=== PATIENT | male | born 1935 | race Caucasian/White ===

== ENCOUNTER 2017-06-13 08:20 | Emergency (ER) | payer MEDICARE, BC ==
--- NOTE | 2017-06-13 10:32 | RAD ---
Indication: LEFT heel pain. Symptoms for one week. No known injury. Comparison: No relevant prior exams available [place] [facility] [place]. Technique: AP, lateral, and oblique views LEFT foot. Report: Normal articular alignment. Negative for fracture. Normal variant bipartite sesamoid at the medial head of the flexor hallucis brevis. Mild osteoarthritis at the first metatarsal phalangeal joint. Minimal plantar fascia origin bone spur. Mild soft tissue edema about the heel. Peripheral vascular calcifications. IMPRESSION: 1. Negative for fracture. 2. Small plantar fascia origin heel spur. Nonspecific soft tissue swelling about the heel. Correlate for potential plantar fasciitis.
[2017-06-13 10:52] VITALS: BP 116/63
--- NOTE | 2017-06-13 11:00 | UC ---
Lower Extremity/Ankle HPI - HPI Summary HPI Summary: SEVERAL WEEKS OF WORSENING LEFT HEEL PAIN, RADIATES TO BOTTOM OF FOOT. 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 - History of Current Complaint Chief Complaint: UCLowerExtremity Stated Complaint: RIGHT ANKLE PAIN Time Seen by Provider: 06/13/17 09:56 Hx Obtained From: Patient Onset/Duration: Gradual Onset, Lasting Weeks Severity Initially: Moderate Severity Currently: Moderate Aggravating Factor(s): Standing, Ambulation Able to Bear Weight: Yes - Allergies/Home Medications Allergies/Adverse Reactions: Allergies Allergy/AdvReac Type Severity Reaction Status Date / Time No Known Allergies Allergy Verified 06/13/17 08:48 Home Medications: Home Medications Aspirin [Aspirin 81 MG TAB] 81 mg PO QPM 06/13/17 [History Confirmed 06/13/17] Enlarged Prostate Med 1 tab PO QAM 06/13/17 [History] Glaucoma Med 1 dose BOTH EYES DAILY 06/13/17 [History] Loperamide CAP* [Imodium CAP*] 2 tab PO DAILY 06/13/17 [History Confirmed ] Ranitidine HCl 150 mg PO DAILY 06/13/17 [History Confirmed 06/13/17] Real Tears 1 dose BOTH EYES QID 06/13/17 [History] Simvastatin [Zocor 5 MG-] 40 mg PO QPM 06/13/17 [History Confirmed 06/13/17] PMH/Surg Hx/FS Hx/Imm Hx Previously Healthy: Yes - Surgical History Surgical History: Yes Surgery Procedure, Year, and Place: right elbow and right hip appliances, appy - Family History Known Family History: Negative: Blood Disorder - Social History Occupation: Retired Lives: With Family Alcohol Use: None Substance Use Type: None Smoking Status (MU): Former Smoker - Immunization History Most Recent Tetanus Shot: unknown Review of Systems Constitutional: Negative Skin: Negative Eyes: Negative ENT: Negative Respiratory: Negative Cardiovascular: Negative Gastrointestinal: Negative Genitourinary: Negative Motor: Negative Neurovascular: Negative Musculoskeletal: Arthralgia - LEFT HEEL PAIN, Myalgia Neurological: Negative Psychological: Negative Is Patient Immunocompromised?: No All Other Systems Reviewed And Are Negative: Yes Physical Exam Triage Information Reviewed: Yes Appearance: Well-Appearing, Well-Nourished, Pain Distress - MILD Vital Signs: Initial Vital Signs Temp 98 F 06/13/17 08:38 Pulse 75 06/13/17 08:38 Resp 18 06/13/17 08:38 BP 114/74 06/13/17 08:38 Vital Signs Reviewed: Yes Eye Exam: Normal ENT Exam: Normal ENT: Positive: Normal ENT inspection Dental Exam: Normal Neck exam: Normal Respiratory Exam: Normal Respiratory: Positive: Chest non-tender, Lungs clear, Normal breath sounds, No respiratory distress, No accessory muscle use Cardiovascular Exam: Normal Cardiovascular: Positive: RRR, No Murmur, Pulses Normal, Brisk Capillary Refill Abdominal Exam: Normal Musculoskeletal: Positive: Strength Intact, ROM Intact, Edema @ - LEFT HEEL MILD EDEMA Neurological Exam: Normal Psychological Exam: Normal Skin Exam: Normal Lower Extremity Course/Dx - Differential Dx/Diagnosis Differential Diagnosis/HQI/PQRI: Fracture (Closed), Sprain, Strain, Tendonitis Provider Diagnoses: LEFT FOOT HEEL SPUR, LEFT FOOT PLANTAR FASCIITIS Discharge - Discharge Plan Condition: Stable Disposition: HOME Patient Education Materials: Plantar Fasciitis Exercises (GEN), Plantar Fasciitis (ED) Referrals: Edgardo SR,Maurice Quinteros [Doctor of Podiatric Medicine] - Non Staff,Doctor [Primary Care Provider] -
== END 2017-06-13 10:59 | disposition home or self-care (01) ==
LOC: UCCORT 08:20
DX: M77.32 Calcaneal spur, left foot (principal); M72.2 Plantar fascial fibromatosis; Z79.82 Long term (current) use of aspirin; Z87.891 Personal history of nicotine dependence
CPT/HCPCS: 99203; G0463

== ENCOUNTER 2017-06-19 12:24 | Emergency (ER) | payer MEDICARE, BC ==
[2017-06-19 13:05] VITALS: BP 106/67
--- NOTE | 2017-06-19 13:39 | UC ---
Respiratory Complaint HPI - HPI Summary HPI Summary: Pt is accompanied by . Pt c/o cough, nasal congestion X 6 days. - History of Current Complaint Chief Complaint: UCRespiratory Stated Complaint: CONGESTION,SOB Hx Obtained From: Patient Onset/Duration: Gradual Onset, Lasting Days, Still Present Timing: Constant Severity Initially: Mild Severity Currently: Mild Character: Cough: Nonproductive Aggravating Factors: Recumbent Position Associated Signs And Symptoms: Positive: URI, Nasal Congestion - Risk Factors Pulmonary Embolism Risk Factors: Negative Cardiac Risk Factors: CAD Pseudomonas Risk Factors: Negative Tuberculosis Risk Factors: Negative - Allergies/Home Medications Allergies/Adverse Reactions: Allergies Allergy/AdvReac Type Severity Reaction Status Date / Time No Known Allergies Allergy Verified 06/19/17 13:05 Home Medications: Home Medications Tamsulosin CAP* [Flomax CAP*] 06/19/17 [History] Trospium (NF) [Sanctura (NF)] 20 mg 06/19/17 [History] PMH/Surg Hx/FS Hx/Imm Hx Previously Healthy: Yes - Surgical History Surgical History: Yes Surgery Procedure, Year, and Place: right elbow and right hip appliances, appy - Family History Known Family History: Positive: Cardiac Disease Negative: Blood Disorder - Social History Occupation: Employed Full-time Lives: With Family Alcohol Use: None Substance Use Type: None Smoking Status (MU): Former Smoker Have You Smoked in the Last Year: No - Immunization History Most Recent Influenza Vaccination: current 2016/2017 Most Recent Tetanus Shot: unknown Most Recent Pneumonia Vaccination: 2013 Vaccination Up to Date: Yes Review of Systems Constitutional: Negative Skin: Negative Eyes: Negative ENT: Other - nasal congsetion Respiratory: Cough Cardiovascular: Negative Gastrointestinal: Negative Genitourinary: Negative Motor: Negative Neurovascular: Negative Musculoskeletal: Negative Neurological: Negative Psychological: Negative Is Patient Immunocompromised?: No All Other Systems Reviewed And Are Negative: Yes Physical Exam Triage Information Reviewed: Yes Appearance: Well-Appearing Vital Signs: Initial Vital Signs Temp 97.2 F 06/19/17 13:01 Pulse 64 06/19/17 13:01 Resp 16 06/19/17 13:01 BP 106/67 06/19/17 13:01 Pulse Ox 97 06/19/17 13:01 Vital Signs Reviewed: Yes Eye Exam: Normal ENT Exam: Other ENT: Positive: Nasal congestion Dental Exam: Normal Neck exam: Normal Respiratory Exam: Normal Respiratory: Positive: Normal breath sounds Cardiovascular Exam: Normal Musculoskeletal Exam: Normal Neurological Exam: Normal Psychological Exam: Normal Skin Exam: Normal UC Diagnostic Evaluation - Laboratory O2 Sat by Pulse Oximetry: 97 Respiratory Course/Dx - Differential Dx/Diagnosis Differential Diagnosis/HQI/PQRI: Bronchitis Provider Diagnoses: bronchitis Discharge - Discharge Plan Condition: Stable Disposition: HOME Prescriptions: Benzonatate CAP* [Tessalon 100 MG CAP*] 100 mg PO Q8H PRN #30 cap PRN Reason: Cough DOXYcycline CAP(*) [DOXYcycline 100MG CAP(*)] 100 mg PO Q12H #20 cap Patient Education Materials: Acute Bronchitis (ED) Referrals: Non Staff,Doctor [Primary Care Provider] - If Needed
== END 2017-06-19 14:04 | disposition home or self-care (01) ==
LOC: UCCORT 12:24
DX: J40 Bronchitis, not specified as acute or chronic (principal); Z87.891 Personal history of nicotine dependence
CPT/HCPCS: 99212; G0463

== ENCOUNTER 2018-01-26 14:16 | Emergency (ER) | payer MEDICARE, BC ==
[2018-01-26 14:35] VITALS: BP 115/64
[2018-01-26] MEDS ORDERED: Lidocaine 1%* 5 ML VIAL INJ ONE (14:52)
--- NOTE | 2018-01-26 14:52 | UC ---
Hand/Wrist HPI - HPI Summary HPI Summary: Patient presents compared by his . He states that he accidentally cut his left thumb with a saw about one hour prior to arrival. He denies any foreign body sensation or limited range of motion. They report that his last tetanus is within the past 10 years. He denies any other injuries offers no other complaints. - History Of Current Complaint Chief Complaint: UCLaceration Stated Complaint: LAC ON THUMB/LT HAND Time Seen by Provider: 01/26/18 14:45 Hx Obtained From: Patient, Family/Store Receiver Onset/Duration: Sudden Onset Pain Intensity: 2 Aggravating Factor(s): Movement Alleviating Factor(s): Nothing Associated Signs And Symptoms: Negative: Weakness, Numbness/Tingling - Allergies/Home Medications Allergies/Adverse Reactions: Allergies Allergy/AdvReac Type Severity Reaction Status Date / Time No Known Allergies Allergy Verified 01/26/18 14:35 PMH/Surg Hx/FS Hx/Imm Hx Endocrine History: Dyslipidemia Cardiovascular History: Myocardial Infarction GI/ History: Gastroesophageal Reflux - Surgical History Surgical History: Yes Surgery Procedure, Year, and Place: right elbow and right hip appliances, appy - Family History Known Family History: Positive: Cardiac Disease Negative: Blood Disorder - Social History Occupation: Retired Lives: With Family Alcohol Use: None Substance Use Type: None Smoking Status (MU): Former Smoker Have You Smoked in the Last Year: No - Immunization History Most Recent Influenza Vaccination: current 2016/2017 Most Recent Tetanus Shot: unknown Most Recent Pneumonia Vaccination: 2014 Vaccination Up to Date: Yes Review of Systems Constitutional: Negative - CUT l THUMB Skin: Other - CUT TO SIDE OF l THUMB Eyes: Negative ENT: Negative Respiratory: Negative Cardiovascular: Negative Gastrointestinal: Negative Genitourinary: Negative Motor: Negative Neurovascular: Negative Musculoskeletal: Negative Neurological: Negative Psychological: Negative Is Patient Immunocompromised?: No All Other Systems Reviewed And Are Negative: Yes Physical Exam Triage Information Reviewed: Yes Appearance: Well-Appearing Vital Signs: Initial Vital Signs Temp 98.9 F 01/26/18 14:28 Pulse 68 01/26/18 14:28 Resp 16 01/26/18 14:28 BP 115/64 01/26/18 14:28 Pulse Ox 97 01/26/18 14:28 Vital Signs Reviewed: Yes Eyes: Positive: Conjunctiva Clear ENT: Positive: Normal ENT inspection Neck: Positive: Supple, Nontender, No Lymphadenopathy Respiratory: Positive: Lungs clear, Normal breath sounds Cardiovascular: Positive: RRR, No Murmur Abdomen Description: Positive: Nontender, No Organomegaly, Soft Bowel Sounds: Positive: Present Musculoskeletal: Positive: ROM Intact Neurological: Positive: Alert Psychological: Positive: Normal Response To Family, Age Appropriate Behavior Skin Exam: Normal, Other - 2.0cm laceration ulnar side L thumb with pink deep flap. gross s/v/m is intact with and without resistance. No bleeding. Procedures - Procedure Summary Procedure Summary: Timeout done. Thumb prepped with Betadine. Local with 0.4 mL's of 1% lidocaine. Wound explored for foreign bodies, tendon and ligament damage and none identified. Site irrigated with copious amounts of sterile sodium chloride. Wound reprepped with Betadine, draped and closed with 5-0 nylon and 4 interrupted stitches. Minimal bleeding with procedure. Patient tolerated well. Gross vascular motor intact post procedure. Sterile technique used. Wound length 2 cm. Dressing applied by nursing post procedure. Diagnostics - Radiology No standard instances Radiology Interpretation Completed By: Radiologist - Suggestion of talocrural joint effusion. Subtle grossly nondisplaced avulsion fracture noted at the caudal margin of the lateral malleolus reference the AP view. Congruent ankle mortise. Mild nonfocal soft tissue swelling. Hand/Wrist Course/Dx - Course Course Of Treatment: No concern for fracture, foreign body, tendon or ligament injury. No signs of infection. - Differential Dx/Diagnosis Provider Diagnoses: 2 cm laceration left thumb. Discharge - Sign-Out/Discharge Documenting (check all that apply): Patient Departure - Discharge Plan Condition: Stable Disposition: HOME Patient Education Materials: Care For Your Stitches (DC) Referrals: No Primary Care Phys,NOPCP [Primary Care Provider] - Additional Instructions: RETURN TO THIS [facility] IN 7 DAYS FOR SUTURE REMOVAL OR SOONER FOR ANY CONCERNS. - Billing Disposition and Condition Condition: STABLE Disposition: Home Attestation Statement User Type: Provider - I was available for consult. This patient was seen by the GRISELDA. The patient was not presented to, seen by, or examined by me. -Adelia
--- NOTE | 2018-01-26 15:17 | RAD ---
Indication: Left thumb injury. 3 views of left thumb reviewed. Deformity of the proximal end of the distal phalanx likely due to old injury. No recent injury is noted. No evidence of radiopaque foreign body is noted. IMPRESSION: No definite fracture is identified.
== END 2018-01-26 15:40 | disposition home or self-care (01) ==
LOC: UCCORT 14:16
DX: S61.012A Laceration without foreign body of left thumb without damage to nail, initial encounter (principal); W27.8XXA Contact with other nonpowered hand tool, initial encounter; Y92.9 Unspecified place or not applicable; E78.5 Hyperlipidemia, unspecified; I25.2 Old myocardial infarction; K21.9 Gastro-esophageal reflux disease without esophagitis; Z87.891 Personal history of nicotine dependence
CPT/HCPCS: 99211; G0463

== ENCOUNTER 2018-02-03 07:38 | Emergency (ER) | payer MEDICARE, BC ==
[2018-02-03 07:56] VITALS: BP 131/74
--- NOTE | 2018-02-03 08:11 | UC ---
HPI Wound/Suture Re-check - HPI Summary HPI Summary: here for suture removal left thumb sutures were placed here at the urgent care 8 days ago has no complain wound is healing well - History Of Current Complaint Chief Complaint: UCGeneralIllness Stated Complaint: SUTURE REMOVAL Time Seen by Provider: 02/03/18 07:55 Hx Obtained From: Patient Onset/Duration: Sudden Onset, Lasting Days - 8, Still Present Severity: Moderate Pain Intensity: 0 Procedure Type: suture removal Surgery Date: 01/26/18 - Allergies/Home Medications Allergies/Adverse Reactions: Allergies Allergy/AdvReac Type Severity Reaction Status Date / Time No Known Allergies Allergy Verified 02/03/18 07:53 PMH/Surg Hx/FS Hx/Imm Hx Cardiovascular History: Cardiac Disease, Hypertension - Surgical History Surgical History: Yes Surgery Procedure, Year, and Place: right elbow and right hip appliances, appy - Family History Known Family History: Positive: Cardiac Disease Negative: Blood Disorder - Social History Alcohol Use: None Substance Use Type: None Smoking Status (MU): Former Smoker Have You Smoked in the Last Year: No When Did the Patient Quit Smoking/Using Tobacco: 15 years ago - Immunization History Most Recent Influenza Vaccination: current 2016/2017 Most Recent Tetanus Shot: unknown Most Recent Pneumonia Vaccination: 2014 Vaccination Up to Date: Yes Review of Systems Constitutional: Negative Skin: Negative Eyes: Negative ENT: Negative Is Patient Immunocompromised?: No All Other Systems Reviewed And Are Negative: Yes Physical Exam Triage Information Reviewed: Yes Appearance: Well-Appearing, No Pain Distress, Well-Nourished Vital Signs: Initial Vital Signs Temp 97.7 F 02/03/18 07:54 Pulse 69 02/03/18 07:54 Resp 16 02/03/18 07:54 BP 131/74 02/03/18 07:54 Pulse Ox 99 02/03/18 07:54 Vital Signs Reviewed: Yes Eye Exam: Normal Eyes: Positive: Conjunctiva Clear ENT: Positive: Normal ENT inspection, Hearing grossly normal, Pharynx normal Neck exam: Normal Neck: Positive: Supple Respiratory: Positive: Chest non-tender, Lungs clear, Normal breath sounds Cardiovascular: Positive: RRR, No Murmur, Pulses Normal Bowel Sounds: Positive: Present Skin: Positive: Other - laceration left thumb , + 1.5 cm , wound is clean , dry , healing well 4 sutures intact , wal removed at this visit Course/Dx - Differential Dx - Laceration/Wound Provider Diagnoses: suture removal. laceration left thumb Discharge - Sign-Out/Discharge Documenting (check all that apply): Patient Departure - Discharge Plan Condition: Stable Disposition: HOME Patient Education Materials: Stitches Removal (ED) Referrals: Krishan SOTO,Isacc Francis [Primary Care Provider] - If Needed - Billing Disposition and Condition Condition: STABLE Disposition: Home
== END 2018-02-03 08:08 | disposition home or self-care (01) ==
LOC: UCCORT 07:38
DX: S61.012D Laceration without foreign body of left thumb without damage to nail, subsequent encounter (principal); X58.XXXD Exposure to other specified factors, subsequent encounter; Y92.9 Unspecified place or not applicable

== ENCOUNTER 2018-12-15 14:07 | Emergency (ER) | payer MEDICARE, BC ==
[2018-12-15 14:33] VITALS: BP 98/67
--- NOTE | 2018-12-15 14:50 | UC ---
Lower Extremity/Ankle HPI - HPI Summary HPI Summary: 83-year-old male comes in with a chief complaint of left great toe pain. Patient reports she's had something on the plantar aspect of his great toe for a long time. It's difficult to get out of his by a long time it seems like it' s at least a couple of months. Tender 12 days ago had been getting worse and he saw his dental tech who did something to the toe. Patient not quite sure his wasn't watching so she is unsure of what happened. The patient does not see or hear well. They think dental tech removed a piece of wood. Since that time the pains got worse. Patient does not have diabetes. No fevers no chills no drainage. Pain is worse with application of pressure. It's less when there is no pressure put on. - History of Current Complaint Chief Complaint: UCLowerExtremity Stated Complaint: LT BIG TOE COMPLAINT Time Seen by Provider: 12/15/18 14:41 Pain Intensity: 2 - Allergies/Home Medications Allergies/Adverse Reactions: Allergies Allergy/AdvReac Type Severity Reaction Status Date / Time No Known Allergies Allergy Verified 12/15/18 14:33 Home Medications: Home Medications Mirtazapine TAB* [Remeron TAB*] 7.5 mg PO BEDTIME 12/15/18 [History Confirmed ] Omeprazole 20 mg PO DAILY 12/15/18 [History Confirmed 12/15/18] PMH/Surg Hx/FS Hx/Imm Hx Previously Healthy: Yes - BPH Endocrine History: Dyslipidemia GI/ History: Gastroesophageal Reflux - Surgical History Surgical History: Yes Surgery Procedure, Year, and Place: right elbow and right hip appliances, appy - Family History Known Family History: Positive: Cardiac Disease Negative: Blood Disorder - Social History Alcohol Use: None Substance Use Type: None Smoking Status (MU): Former Smoker Have You Smoked in the Last Year: No When Did the Patient Quit Smoking/Using Tobacco: 15 years ago - Immunization History Most Recent Influenza Vaccination: current 2017/2018 Most Recent Tetanus Shot: unknown Most Recent Pneumonia Vaccination: 2013 Vaccination Up to Date: Yes Review of Systems All Other Systems Reviewed And Are Negative: Yes Constitutional: Positive: Negative Skin: Positive: Other - SEE HPI Eyes: Positive: Other - SEE HPI ENT: Positive: Other - SEE HPI Respiratory: Positive: Negative Cardiovascular: Positive: Negative Gastrointestinal: Positive: Negative Motor: Positive: Negative Neurovascular: Positive: Negative Musculoskeletal: Positive: Negative Neurological: Positive: Negative Psychological: Positive: Negative Is Patient Immunocompromised?: No Physical Exam Triage Information Reviewed: Yes Appearance: Well-Appearing, No Pain Distress, Well-Nourished Vital Signs: Initial Vital Signs Temp 99.1 F 12/15/18 14:21 Pulse 81 12/15/18 14:21 Resp 18 12/15/18 14:21 BP 98/67 12/15/18 14:21 Pulse Ox 97 12/15/18 14:21 Vital Signs Reviewed: Yes Eye Exam: Normal Eyes: Positive: Conjunctiva Clear Neck: Positive: Supple Respiratory: Positive: No respiratory distress Musculoskeletal: Positive: Strength Intact, ROM Intact Neurological: Positive: Alert, Other: - MI'KMAQ,POOR VISION Psychological: Positive: Normal Response To Family, Age Appropriate Behavior Skin: Positive: Other - PLANTAR ASPECT OF LT GREAT TOE MILDLY TENDER WITH SOME SWELLING. NO STREAKING, NL SENSATION AND CAP REFILL. NO DRAINAGE. MINIMAL FLUCTUANCE. Lower Extremity Course/Dx - Course Course Of Treatment: Patient Name: ARMIDA QUILES Medical Record#: [id number] Ordering Physician: Roberto Spicer MD Acct.#: [id number] : 1935 Age: 83 Sex: M Location: [facility] Exam Date: 12/15/181448 ADM Status: REG ER Order Information: TOE LEFT GREAT Accession Number: [id number] CPT: 23160 HISTORY: Pain/swelling plantar lt great toe.Eval FB . COMPARISONS: June 13, 2017 VIEWS: 3, Frontal, lateral, and oblique views of the first digit of the left foot FINDINGS: BONE DENSITY: Normal. BONES: There is no displaced fracture. JOINTS: There is osteoarthritis of the first interphalangeal joint and to a lesser extent at the MTP joint. ALIGNMENT: There is no dislocation. SOFT TISSUES: Unremarkable. OTHER FINDINGS: There is no radiopaque foreign body. IMPRESSION: OSTEOARTHRITIS. NO ACUTE OSSEOUS INJURY. IF SYMPTOMS PERSIST, RECOMMEND REPEAT IMAGING. <Electronically signed by Robert Kowalski MD in OV> 12/15/18 1532 NO OBVIOUS FLUCTUANCE FOR I&D. PLAN IS KEFLEX RX AND F/U PODIATRY. REEVAL SOONER IF WORSE. - Differential Dx/Diagnosis Provider Diagnosis: Foreign body of great toe, left, infected Discharge - Sign-Out/Discharge Documenting (check all that apply): Patient Departure All imaging exams completed and their final reports reviewed: Yes - Discharge Plan Condition: Stable Disposition: HOME Prescriptions: Cephalexin CAP* [Keflex CAP*] 500 mg PO TID #30 cap Patient Education Materials: Soft Tissue Foreign Body (ED), Cellulitis (ED) Referrals: Krishan SOTO,Armida Francis [Primary Care Provider] - Edgardo SR,Maurice Quinteros [Doctor of Podiatric Medicine] - Additional Instructions: FOLLOW UP WITH YOUR CREW SCHEDULER. GET RECHECKED SOONER IF YOUR CONDITION WORSENS; PAIN, SIGNS OF INFECTION OR ANY QUESTIONS OR CONCERNS. - Billing Disposition and Condition Condition: STABLE Disposition: Home
== END 2018-12-15 15:38 | disposition home or self-care (01) ==
LOC: UCCORT 14:07
DX: M79.5 Residual foreign body in soft tissue (principal); L08.89 Other specified local infections of the skin and subcutaneous tissue; M19.072 Primary osteoarthritis, left ankle and foot; N40.0 Benign prostatic hyperplasia without lower urinary tract symptoms; E78.5 Hyperlipidemia, unspecified; K21.9 Gastro-esophageal reflux disease without esophagitis; Z87.891 Personal history of nicotine dependence
CPT/HCPCS: 99212; G0463

== ENCOUNTER 2019-04-11 09:08 | Emergency (ER) | payer MEDICARE, BC ==
[2019-04-11 09:24] VITALS: BP 140/57
--- NOTE | 2019-04-11 09:41 | UC ---
Elbow Pain - HPI Summary HPI Summary: Pt presents with c/o right elbow pain that began post fall from standing height yesterday. Pt was "chasing the neighbors cows" and fell from standing and "rolled down hill". 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 Pt states pain worsens with flexion/extension movement - History of Current Complaint Chief Complaint: UCGeneralIllness Stated Complaint: S/P FALL(04/10/19)-RIGHT ARM INJURY Time Seen by Provider: 04/11/19 09:18 Hx Obtained From: Patient Onset/Duration: Traumatic Severity Initially: Moderate Severity Currently: Moderate Pain Intensity: 8 Location Of Pain: Is Discrete @ - right elbow, generalized Character: Dull, Aching Aggravating Factor(s): Movement Alleviating Factor(s): Rest Associated Signs And Symptoms: Positive: Negative - Allergies/Home Medications Allergies/Adverse Reactions: Allergies Allergy/AdvReac Type Severity Reaction Status Date / Time No Known Allergies Allergy Verified 04/11/19 09:25 Home Medications: Home Medications Nitroglycerin 0.2 MG/HR PATCH* [Nitroglycerin 5 MG PATCH*] 5 mg TRANSDERM DAILY 04/11/19 [History Confirmed 04/11/19] PMH/Surg Hx/FS Hx/Imm Hx Previously Healthy: Yes Endocrine History: Dyslipidemia Cardiovascular History: Cardiac Disease - Surgical History Surgical History: Yes Surgery Procedure, Year, and Place: right elbow and right hip appliances, appy - Family History Known Family History: Positive: Cardiac Disease Negative: Blood Disorder - Social History Occupation: Retired Lives: With Family Alcohol Use: None Substance Use Type: None Smoking Status (MU): Former Smoker Have You Smoked in the Last Year: No When Did the Patient Quit Smoking/Using Tobacco: 15 years ago - Immunization History Most Recent Influenza Vaccination: current 2017/2017 Most Recent Tetanus Shot: unknown Most Recent Pneumonia Vaccination: 2014 Vaccination Up to Date: Yes Review of Systems All Other Systems Reviewed And Are Negative: Yes Constitutional: Positive: Negative Skin: Positive: Negative Eyes: Positive: Negative ENT: Positive: Negative Respiratory: Positive: Negative Cardiovascular: Positive: Negative Gastrointestinal: Positive: Negative Genitourinary: Positive: Negative Motor: Positive: Decreased ROM - pain with ROM right elbow Neurovascular: Positive: Negative Musculoskeletal: Positive: Arthralgia, Decreased ROM, Myalgia Neurological: Positive: Negative Psychological: Positive: Negative Is Patient Immunocompromised?: No Physical Exam Triage Information Reviewed: Yes Appearance: Well-Appearing Vital Signs: Initial Vital Signs Temp 96.3 F 04/11/19 09:21 Pulse 83 04/11/19 09:21 Resp 16 04/11/19 09:21 BP 140/57 04/11/19 09:21 Pulse Ox 100 04/11/19 09:21 Vital Signs Reviewed: Yes Eye Exam: Normal ENT: Positive: Hearing grossly normal Dental: Positive: Other: - no teeth, Respiratory: Positive: No respiratory distress Musculoskeletal: Positive: ROM Limited @ - right elbow c/o pain with ROM Neurological Exam: Normal Psychological Exam: Normal Skin Exam: Normal Diagnostics - Radiology No standard instances Radiology Interpretation Completed By: Radiologist - Pickling Operator: Robert Kowalski Daniel, ([id number]) Chief Operations Officer: DARIUS (HAYDEEANCE) Report Date: 04/11/2019 09:34:00 Report Status: Final Start of Report Content ====== Patient Name: ARMIDA QUILES Medical Record#: [id number] Ordering Physician: Annemarie Alcazar RESEARCH AND DEVELOPMENT ENGINEER Acct.#: [id number] : 1935 Age: 83 Sex: M Location: [facility] Exam Date: 04/11/19933 ADM Status: REG ER Order Information: ELBOW RIGHT 3+ VWS Accession Number: [id number] CPT: 21754 HISTORY: fall from standing height . COMPARISONS: None relevant available at the time of dictation. VIEWS: 4, Frontal, lateral, and oblique views of the right elbow FINDINGS: BONE DENSITY: There is diffuse osteopenia. BONES: The patient is status post right elbow arthroplasty with prosthesis of the distal humerus and proximal ulna. There is periprosthetic lucency along the humeral component. There is no appreciable hardware failure or periprosthetic fracture. JOINTS: There is evidence of arthroplasty of the radial-capitellar articulation. The patient is status humeral-ulnar arthroplasty. ALIGNMENT: There is no dislocation. SOFT TISSUES: Unremarkable. OTHER FINDINGS: None. IMPRESSION: 1. OSTEOPENIA. 2. STATUS POST HUMERAL-ULNAR ARTHROPLASTY. THERE IS PERIPROSTHETIC LUCENCY OF THE HUMERAL COMPONENT SUGGESTIVE OF LOOSENING. THERE IS NO APPRECIABLE PERIPROSTHETIC FRACTURE. IF SYMPTOMS PERSIST, RECOMMEND REPEAT IMAGING < Electronically signed by Robert Kowalski MD in OV> 04/11/19 1008 Dictated By : Robert Kowalski MD Dictated Date/Time: 04/11/19 1007 Transcribed Date/Time : 04/11/19 1007 Copy to: CC:Armida Nickerson MD; Annemarie Alcazar RESEARCH AND DEVELOPMENT ENGINEER; Rehan Candelaria MD Imaging - [facility] - [facility] [address] [place] [address] ph ([phone]) ph ) ph ([phone]) End of Report Content Elbow Pain Course/Dx - Differential Dx/Diagnosis Differential Diagnosis/HQI/PQRI: Dislocation, Fracture (Closed), Sprain, Strain Provider Diagnosis: Strain of right elbow Discharge ED - Sign-Out/Discharge Documenting (check all that apply): Patient Departure All imaging exams completed and their final reports reviewed: Yes - Discharge Plan Condition: Stable Disposition: HOME Patient Education Materials: Elbow Sprain (ED), Arthralgia (ED) Referrals: Sam SOTO,Nelson Jaramillo [Medical Doctor] - As Soon As Possible Krishan SOTO,Armida Francis [Primary Care Provider] - Additional Instructions: Please follow up with your orthopedic provider as soon as possible. - Billing Disposition and Condition Condition: STABLE Disposition: Home
== END 2019-04-11 10:37 | disposition home or self-care (01) ==
LOC: UCCORT 09:08
DX: S53.401A Unspecified sprain of right elbow, initial encounter (principal); W17.81XA Fall down embankment (hill), initial encounter; Y93.89 Activity, other specified; Y92.89 Other specified places as the place of occurrence of the external cause; I51.9 Heart disease, unspecified; Z87.891 Personal history of nicotine dependence
CPT/HCPCS: 99211; G0463

== ENCOUNTER 2019-06-07 09:14 | Day surgery (SDC) | payer MEDICARE, BC ==
[~2019-06-07 09:14] MED LIST: Buffered Lidocaine 1% SYRIN* 1 ML/SYRINGE INTRADERM ONE; Lactated Ringers 1000 ML Bag* 1,000 ML IV SCH
[2019-06-07] MEDS ORDERED: ceFAZolin 2 GM in NS PREMIX(*) 2 GM/100 ML BAG IVPB ONE (09:37)
[2019-06-07] MEDS ORDERED: Bupivacaine 0.5%* 50 ML MDV VIAL ONE (11:12)
[2019-06-07] MEDS ORDERED: Naloxone* 0.4 MG/ML 1 ML VIAL IV PRN (11:18)
[2019-06-07] MEDS ORDERED: Lidocaine 2% PF* 10 ML AMP ONE (11:23)
[2019-06-07] MEDS ORDERED: fentaNYL* 50 MCG/ML 2 ML VIAL (100 MCG VIAL) ONE (11:36)
[2019-06-07] MEDS ORDERED: Propofol* 10 MG/ML 20 ML BTL ONE (11:37)
[2019-06-07] MEDS ORDERED: Lidocaine 2% PF * 5 ML VIAL ONE (11:37)
[2019-06-07 13:39] VITALS: BP 136/75
--- NOTE | 2019-06-07 21:48 | OP ---
DATE OF OPERATION: 06/07/19 - [facility] DATE OF : 35 ATTENDING SURGEON: Rayshawn Kurtz MD ASSISTED BY: Etelvina Martinez PA-C PRE-OP DIAGNOSIS: Recurrent ulceration left plantar interphalangeal joint great toe and recurrent callus medial aspect, left third toe. POST-OP DIAGNOSIS: Recurrent ulceration left plantar interphalangeal joint great toe and recurrent callus medial aspect, left third toe. OPERATIVE PROCEDURE: IP fusion, left great toe and condylectomy, left third toe. DESCRIPTION OF PROCEDURE: The patient was taken to the operating room where we made a transverse incision at the IP joint of the left great toe. The condyles of the phalanx and proximal phalanx were resected with a microsagittal saw. We made generous cuts so that the plantar medial condyle would be removed. We then pinned the joint in a neutral position using paired 4.0 cannulated screws. No washers were used but got good fixation obtained. We then irrigated this wound closing with Monocryl and nylon sutures for the skin. The third toe had a large callus along the medial aspect of the PIP condyle. We made an elliptical incision longitudinally at this level and used a rongeur to remove the condyle. We then irrigated thoroughly, closing the skin with interrupted nylon sutures, compression dressing was then applied in a sterile fashion. [id number]/[facility] #: [id number] [facility]
== END 2019-06-07 13:41 | disposition home or self-care (01) ==
LOC: OR 09:14
PROVIDERS: ATTEND Orthopaedic Surgery
DX: L89.899 Pressure ulcer of other site, unspecified stage (principal); L84 Corns and callosities; M19.072 Primary osteoarthritis, left ankle and foot; E78.5 Hyperlipidemia, unspecified; I25.10 Atherosclerotic heart disease of native coronary artery without angina pectoris; I25.2 Old myocardial infarction; Z95.5 Presence of coronary angioplasty implant and graft; K21.9 Gastro-esophageal reflux disease without esophagitis; N40.0 Benign prostatic hyperplasia without lower urinary tract symptoms
CPT/HCPCS: 88305; C1713; C1776; J0690; J2001; J2704; J3010; J3490